=== PATIENT | male | born 1955 | race Caucasian/White ===

== ENCOUNTER 2016-07-20 08:58 | Outpatient (CLI) | payer MEDICAID | END 2016-07-20 08:59 | disposition home or self-care (01) | DX: Z12.2 Encounter for screening for malignant neoplasm of respiratory organs (principal); F17.210 Nicotine dependence, cigarettes, uncomplicated ==

== ENCOUNTER 2016-08-30 13:21 | Outpatient (CLI) | payer MEDICAID ==
--- NOTE | 2016-08-31 09:02 | XRAY Report ---
CERVICAL SPINE WITH FLEXION AND EXTENSION: 08/30/2016 CLINICAL INDICATION: Chronic neck pain. FINDINGS: AP, lateral, oblique, odontoid, lateral flexion, lateral extension views of the cervical s pine were obtained. There is degenerative disc and facet disease present, with disk space narrowing worst at C6-7. There is minimal degenerative anterolisthesis of C4 on C5, which is stable across fle xion and extension. There is no evidence of fracture. Right osseous neural foraminal narrowing is n oted at C4-5 and C5-6. IMPRESSION: DEGENERATIVE CHANGES, WITH RIGHT-SIDED OSSEOUS NEURAL FORAMINAL NARROWING. NO ABNORMAL MOTION ON FLEXION OR EXTENSION. JOB #: [id number] EXT JOB #:[id number]
== END 2016-08-30 13:22 | disposition home or self-care (01) ==
LOC: DI.S 13:21
PROVIDERS: ATTEND Nurse Practitioner Family
DX: M50.31 Other cervical disc degeneration, high cervical region (principal); M47.892 Other spondylosis, cervical region
CPT/HCPCS: 72052

== ENCOUNTER 2017-03-23 04:11 | Emergency (ER) | payer MEDICAID, MEDICARE ==
[2017-03-23] MEDS ORDERED: KETOROLAC 60 MG/2 ML VIAL IM STA (04:22)
[2017-03-23] MEDS: diazePAM 5 MG TABLET PO STA ×2 (04:30→05:59)
[2017-03-23 04:51] LABS: BASOPHILS # (AUTO) 0.1 10^3/uL (0.0-0.1); BASOPHILS % (AUTO) 0.3 %; HGB - HEMOGLOBIN 14.2 g/dL (14.0-18.0); LYMPHOCYTES # (AUTO) 0.8 10^3/uL (1.5-3.5); LYMPHOCYTES % (AUTO) 4.6 %; MEAN CORPUSCULAR HEMOGLOBIN 32.1 pg (27.0-31.0); MEAN CORPUSCULAR HGB CONC 33.6 g/dL (32.0-36.0); MEAN CORPUSCULAR VOLUME 95.5 fL (80.0-94.0); MEAN PLATELET VOLUME 6.8 fL (7.4-11.4); MONOCYTES # (AUTO) 0.9 10^3/uL (0.0-1.0); MONOCYTES % (AUTO) 5.6 %; NEUTROPHILS # (AUTO) 14.8 10^3/uL (1.5-6.6); NEUTROPHILS % (AUTO) 89.5 %; PLT - PLATELET COUNT 233 10^3/uL (130-450); RED BLOOD COUNT 4.42 10^6/uL (4.70-6.10); RED CELL DISTRIBUTION WIDTH 12.7 % (12.0-15.0); WHITE BLOOD COUNT 16.6 x10^3/uL (4.8-10.8)
--- NOTE | 2017-03-23 04:55 | ED Physician Documentation ---
PD HPI HEENT - Stated complaint Stated Complaint: FACIAL PX - Chief complaint Chief Complaint: Heent - History obtained from History obtained from: Patient - History of Present Illness Timing - onset: Yesterday Timing - details: Gradual onset, Still present Location: Mouth Worsens: Swalllowing, Position Associated symptoms: Facial swelling. No: Fever, Congestion Similar symptoms before: No diagnosis Recently seen: Not recently seen - Additional information Additional information: Patient is a 62 year old male with a history of tmj disease who is presenting to the emergency department for facial pains and swelling. patient states that he has had pain in both his tmjs, but normally worse on the right. Patient states that he started to have pain yesterday but it has become much more sever over the last 24 hours. patient has swelling over the area, but has never had swelling with his symptoms before. Review of Systems Constitutional: denies: Fever, Chills Eyes: denies: Decreased vision, Photophobia Ears: reports: Ear pain. denies: Drainage/discharge Throat: reports: Dental pain / toothache Cardiac: denies: Chest pain / pressure, Palpitations Respiratory: denies: Cough, Wheezing GI: denies: Nausea, Vomiting : reports: Reviewed and negative Skin: reports: Reviewed and negative Musculoskeletal: denies: Neck pain Neurologic: denies: Generalized weakness, Focal weakness, Headache, LOC Immunocompromised: denies: Immunocompromised PD PAST MEDICAL HISTORY - Past Medical History Past Medical History: Yes Cardiovascular: Hypertension Respiratory: COPD, Emphysema - Past Surgical History Past Surgical History: Yes - Present Medications Home Medications: Ambulatory Orders Medication Instructions Recorded Confirmed No Known Home Medications [No 03/23/17 03/23/17 Known Home Medications] - Allergies Allergies/Adverse Reactions: Allergies Allergy/AdvReac Type Severity Reaction Status Date / Time No Known Drug Allergies Allergy Verified 05/08/15 15:42 - Social History Does the pt smoke?: Yes Smoking Status: Current every day smoker Does the pt drink ETOH?: Yes ETOH Use: Liquor Does the pt have substance abuse?: No - Immunizations Immunizations are current?: Yes - POLST Patient has POLST: No PD ED PE NORMAL - Vitals Vital signs reviewed: Yes - General General: Alert and oriented X 3 - HEENT HEENT: PERRL, Moist mucous membranes - Neck Neck: No bony TTP - Abdomen Abdomen: Soft, Non tender, Non distended - Derm Derm: Normal color, Warm and dry, No rash - Extremities Extremities: No deformity, Normal ROM s pain, No edema - Neuro Neuro: Alert and oriented X 3, No motor deficit, No sensory deficit, Normal speech PD ED PE EXPANDED - General General: Alert, In Pain - HEENT HEENT: Other (tenderness and swelling over right tmj and right maxillary region , decreased rom secondary to pain) - Cardiac Cardiac: Tachy - Respiratory Respiratory: Wheezing, Right lower lobe, Left lower lobe Results - Vitals Vitals: Vital Signs - 24 hr 03/23/17 03/23/17 03/23/17 04:15 05:16 05:51 Temperature 36.6 C 98.7 C H Heart Rate 136 H 130 H 115 H Respiratory 20 16 16 Rate Blood Pressure 141/92 H 164/92 H 142/84 H O2 Saturation 98 98 96 Oxygen O2 Source Room air - Labs Labs: Laboratory Tests 03/23/17 03/23/17 04:35 04:35 WBC 16.6 H RBC 4.42 L Hgb 14.2 Hct 42.2 MCV 95.5 H MCH 32.1 H MCHC 33.6 RDW 12.7 Plt Count 233 MPV 6.8 L Neut # 14.8 H Lymph # 0.8 L [place] # 0.9 Eos # 0.0 Baso # 0.1 Absolute Nucleated RBC 0.00 Nucleated RBC % 0.0 Sodium 138 Potassium 3.7 Chloride 107 Carbon Dioxide 22 Anion Gap 9.0 BUN 14 Creatinine 0.8 Estimated GFR (MDRD) 98 Glucose 125 H Calcium 9.0 Total Bilirubin 0.9 AST 19 ALT 19 Alkaline Phosphatase 63 Total Protein 7.1 Albumin 4.1 Globulin 3.0 Albumin/Globulin Ratio 1.4 Lipase 13 L - Rads (name of study) ct facial bones with contrast Radiology: Final report received, Discussed with rads, See rad report ( perisosteal abscess, dental infection) PD MEDICAL DECISION MAKING - ED course Complexity details: reviewed old records, reviewed results, re-evaluated patient , considered differential, d/w patient, d/w group segment consultant ED course: Patient was seen and examined at bedside. IV access was gained. patient was treated with toradol and imaging was ordered. When patient returned from imaging the radiologist called and the case was discussed with him. He stated that the patient had a disseminated dental abscess. Patient was treated with unasyn and ent was paged. Case was discussed with Dr. Turcios. Dr. turcios stated that his colleague would be able to evaluate the patient in the emergency department at [facility] and determine if the patient needed inpatient abx, outpatient abx or surgical treatment. Case was discussed with Dr. fuentes in the emergency department who accepted the patient. Arrangements were made and patient was transferred in stable condition. Departure - Departure Disposition: 02 Transfer Acute Care Hosp Clinical Impression: Dental abscess Condition: Stable
[2017-03-23 04:59] LABS: ALBUMIN 4.1 g/dL (3.2-5.5); ALBUMIN/GLOBULIN RATIO 1.4 (1.0-2.2); BILIRUBIN,TOTAL 0.9 mg/dL (0.2-1.0); CREATININE 0.8 mg/dL (0.6-1.2); TOTAL PROTEIN 7.1 g/dL (6.7-8.2)
[2017-03-23] MEDS ORDERED: IOPAMIDOL-300 100 ML VIAL ONE (05:08)
[2017-03-23] MEDS ORDERED: IOPAMIDOL-300 100 ML VIAL IVP ONE (05:19)
--- NOTE | 2017-03-23 05:53 | CT Report ---
EXAM: CT MAXILLOFACIAL WITH CONTRAST EXAM DATE: 03/23/2017 05:21 AM. CLINICAL HISTORY: Right sided facial pain and swelling. COMPARISONS: None. TECHNIQUE: Thin-section axial images were acquired of the face after administration of intravenous co ntrast. Post-processing: Coronal and sagittal reformats. Other: None. IV contrast: 100 cc Isovue-300. In accordance with CT protocol optimization, one or more of the following dose reduction techniques w ere utilized for this exam: automated exposure control, adjustment of mA and/or KV based on patient s ize, or use of iterative reconstructive technique. FINDINGS: There is a small fluid collection seen along the lingual surface of the right mandibular body/angle o f the mandible. This measures 2.4 x 0.5 cm in the axial plane and is consistent with a subperiosteal abscess. This contains a small gas bubble. Finding is immediately adjacent to right mandibular molar tooth which demonstrates a prominent periapical lucency, presumed source of infection. Inflammatory-appearing stranding is seen involving the parapharyngeal fat, pterygoid musculature on t he right side. This extends downward about the right submandibular gland and about the right parotid gland. There is ill-defined swelling of the masseter muscle, surrounding fat, thickening of the platy sma muscle, stranding in the subcutaneous fat. Scattered small areas of gas density are seen within t he it network engineer space. Multiple enlarged right sided level IB lymph nodes are present, presumably reactive nodes. A sizable fluid collection amenable to drainage is not identified. There is moderate mucosal thickening within the right maxillary antrum. Partial opacification of mult iple ethmoid air cells bilaterally. Other paranasal sinuses and mastoids appear unremarkable. Orbits and intracranial contents appear unremarkable. IMPRESSION: 1. Small Subperiosteal abscess along the lingual surface of the mandible, infection likely arising fr om the posteriormost right mandibular tooth. Abscess contains a small amount of gas. 2. Ill-defined inflammatory-appearing stranding with gas bubbles present within the right it network engineer space consistent with infection from gas-forming organism. 3. Cellulitis extends about the right submandibular gland, parotid gland, through the platysma muscle into the subcutaneous fat. 4. Reactive level IB lymphadenopathy. RADIA The above findings were discussed with Dr. Barnes by Dr. Eduardo Matthews at 05:44 hrs on 03/23/17. Referring Provider Line: [phone] SITE ID: [id number]
[2017-03-23] MEDS ORDERED: MORPHINE 10 MG/ML VIAL IVP STA (05:58)
[2017-03-23] MEDS ORDERED: AMPICILLIN/SULBACTAM 3 GM in SODIUM CHLORIDE 0.9% MINIBAG 100 ML IV STA (06:06)
[2017-03-23 07:04] VITALS: BP 102/59
== END 2017-03-23 10:18 | disposition short-term general hospital (02) ==
LOC: ED 04:11
DX: K04.7 Periapical abscess without sinus (principal); I10 Essential (primary) hypertension; J44.9 Chronic obstructive pulmonary disease, unspecified; F17.200 Nicotine dependence, unspecified, uncomplicated
CPT/HCPCS: 36415; 70487; 80053; 83690; 85025; 96365; 96372; 96375; 99284; 99285; Q9967

== ENCOUNTER 2020-10-25 09:42 | Outpatient (CLI) | payer MEDICAID, MEDICARE ==
[2020-10-25 15:04] LABS: BASOPHILS % (AUTO) 0.6 %; EOSINOPHILS # (AUTO) 0.1 10^3/uL (0.0-0.7); EOSINOPHILS % (AUTO) 1.1 %; HCT - HEMATOCRIT 47.2 % (42.0-52.0); HGB - HEMOGLOBIN 15.7 g/dL (14.0-18.0); LYMPHOCYTES # (AUTO) 2.1 10^3/uL (1.5-3.5); MEAN CORPUSCULAR HGB CONC 33.3 g/dL (32.0-36.0); MEAN CORPUSCULAR VOLUME 102.2 fL (80.0-94.0); MEAN PLATELET VOLUME 8.9 fL (7.4-11.4); MONOCYTES # (AUTO) 0.5 10^3/uL (0.0-1.0); NEUTROPHILS # (AUTO) 4.4 10^3/uL (1.5-6.6); NEUTROPHILS % (AUTO) 61.7 %; PLT - PLATELET COUNT 302 10^3/uL (130-450); RED BLOOD COUNT 4.62 10^6/uL (4.70-6.10); RED CELL DISTRIBUTION WIDTH 11.5 % (12.0-15.0); WHITE BLOOD COUNT 7.1 x10^3/uL (4.8-10.8)
[2020-10-25 15:15] LABS: ALBUMIN 4.4 g/dL (3.2-5.5); ALBUMIN/GLOBULIN RATIO 1.4 (1.0-2.2); ALKALINE PHOSPHATASE 69 IU/L (42-121); ALT ALANINE AMINOTRANSFERASE 25 IU/L (10-60); AST ASPARTATE AMINOTRANSFERASE 22 IU/L (10-42); BILIRUBIN,TOTAL 0.6 mg/dL (0.2-1.0); BUN - BLOOD UREA NITROGEN 20 mg/dL (6-20); CALCIUM 10.3 mg/dL (8.5-10.3); CARBON DIOXIDE - CO2 29 mmol/L (21-32); CHLORIDE 101 mmol/L (101-111); CHOL/HDL RATIO 4.7 (<5.0); CHOLESTEROL 312 mg/dL; CREATININE 1.1 mg/dL (0.6-1.2); GFR - MDRD 67 (>89); GLUCOSE 99 mg/dL (70-100); HDL CHOLESTEROL 66 mg/dL; LDL CHOLESTEROL,CALCULATED 219 mg/dL; LDL/HDL RATIO 3.3 (<3.6); POTASSIUM 4.1 mmol/L (3.5-5.0); SODIUM 140 mmol/L (135-145); TOTAL PROTEIN 7.5 g/dL (6.7-8.2); TRIGLYCERIDES 134 mg/dL; VLDL CHOLESTEROL 27 mg/dL
== END 2020-10-25 09:43 | disposition home or self-care (01) ==
LOC: LAB.S 09:42
PROVIDERS: ATTEND Internal Medicine
DX: I10 Essential (primary) hypertension (principal); E78.5 Hyperlipidemia, unspecified; Z12.5 Encounter for screening for malignant neoplasm of prostate
CPT/HCPCS: 36415; 80053; 80061; 85025; G0103; 83721; 84153

== ENCOUNTER 2022-10-20 09:11 | Emergency (ER) | payer MEDICARE ==
--- NOTE | 2022-10-20 09:44 | ED Physician Documentation ---
PD HPI ABD PAIN - Stated complaint Stated Complaint: LOWER BACK PX - Chief complaint Chief Complaint: General - History obtained from History obtained from: Patient - History of Present Illness Timing - onset: How many weeks ago (1-2) Timing - duration: Weeks (1-2) Timing - details: Gradual onset (No apparent acute injury. He noted pain in the left flank to lower back in the last 1 to 2 weeks as gradually increased. Its worse with movement bending and palpation. No abdominal pain per se. No skin rash or sores.), Still present Quality: Aching, Pain Location: Other (left flank mainly) Radiation: Left flank Improved by: Laying still Worsened by: Moving, Position, Palpation (some tender on the muscle left paralumbar/lowe thoracic.) Associated symptoms: No: Fever, Nausea, Vomiting, Diarrhea, Constipation, Dysuria, Hematuria, Weight loss Recently seen: Clinic (Seen at the walk-in clinic with consideration of possible kidney stone given the location. The character is less like a kidney stone but he was referred to the ER for further testing.) Review of Systems Constitutional: denies: Fever, Chills Throat: denies: Sore throat Respiratory: denies: Cough GI: denies: Abdominal Pain, Nausea, Vomiting, Diarrhea : denies: Dysuria, Frequency, Incontinent Skin: denies: Rash, Lesions Musculoskeletal: reports: Back pain. denies: Neck pain Neurologic: denies: Focal weakness, Numbness PD PAST MEDICAL HISTORY - Past Medical History Cardiovascular: Hypertension Respiratory: COPD, Emphysema - Past Surgical History Past Surgical History: Yes - Present Medications Home Medications: Ambulatory Orders Medication Instructions Recorded Confirmed Albuterol 2.5 mg INH PRN PRN 10/20/22 10/20/22 Albuterol Sulf [Ventolin Hfa 18 gm INH PRN PRN 10/20/22 10/20/22 Inhaler] HYDROcod/ACETAM 5/325 [[place] 5/325] 1 ea PO Q6H PRN #18 tablet 10/20/22 Meloxicam [Mobic] 7.5 mg PO BID 10 Days #20 tablet 10/20/22 methocarbamoL [Robaxin] 500 mg PO Q6H PRN #30 tablet 10/20/22 - Allergies Allergies/Adverse Reactions: Allergies Allergy/AdvReac Type Severity Reaction Status Date / Time No Known Drug Allergies Allergy Verified 05/08/15 15:42 - Social History Does the pt smoke?: Yes Smoking Status: Current every day smoker Does the pt drink ETOH?: Yes Does the pt have substance abuse?: No - Immunizations Immunizations are current?: Yes - POLST Patient has POLST: No PD ED PE NORMAL - Vitals Vital signs reviewed: Yes - General General: Alert and oriented X 3, Well developed/nourished - Cardiac Cardiac: RRR, No murmur - Respiratory Respiratory: Clear bilaterally - Abdomen Abdomen: Normal bowel sounds, Soft, Non tender, Non distended - Back Back: No spinal TTP (but is tender in TL area left longitudinal muscles. ) - Derm Derm: Normal color, Warm and dry - Neuro Neuro: Alert and oriented X 3, No motor deficit, No sensory deficit Results - Vitals Vitals: Vital Signs - 24 hr 10/20/22 10/20/22 09:25 14:12 Temperature 36.9 C 36.4 C L Heart Rate 102 H 72 Respiratory 20 16 Rate Blood Pressure 186/96 H 161/92 H O2 Saturation 98 99 Oxygen O2 Source Room air - Labs Labs: Laboratory Tests 10/20/22 10/20/22 10/20/22 10:21 10:21 11:32 WBC 4.9 RBC 4.64 L Hgb 15.3 Hct 46.1 MCV 99.4 H MCH 33.0 H MCHC 33.2 RDW 12.4 Plt Count 220 MPV 8.5 Neut # (Auto) 3.0 Lymph # (Auto) 1.4 L [place] # (Auto) 0.4 Eos # (Auto) 0.1 Baso # (Auto) 0.1 Absolute Nucleated RBC 0.00 Nucleated RBC % 0.0 Sodium 136 Potassium 4.0 Chloride 104 Carbon Dioxide 26 Anion Gap 6.0 BUN 16 Creatinine 0.9 Estimated GFR (MDRD) 84 L Glucose 106 H Calcium 9.3 Total Bilirubin 0.6 AST 20 ALT 14 Alkaline Phosphatase 67 Total Protein 6.9 Albumin 4.2 Globulin 2.7 Albumin/Globulin Ratio 1.6 Lipase 10 L Urine Color YELLOW Urine Clarity CLEAR Urine pH 6.0 Ur Specific [place] 1.025 Urine Protein NEGATIVE Urine Glucose (UA) NEGATIVE Urine Ketones 15 H Urine Occult Blood TRACE-INTA Urine Nitrite NEGATIVE Urine Bilirubin NEGATIVE Urine Urobilinogen 0.2 (NORMAL) Ur Leukocyte Esterase NEGATIVE Ur Microscopic Review NOT INDICATED Urine Culture Comments NOT INDICATED - Rads (name of study) abd/pelvic CT Relevant Findings:: Prelim report reviewed (mild bladder wall thickening, correlate clinically. No ureteral stones (small 1 mm one in kidney).No other acute process. ), EMP independent interpretation of test PD Medical Decision Making - ED course Complexity details: reviewed results (CT abd/pelivs without acute finding to explain pain. The character of his pain seems likely musculospkeletal, with increase on movement, palpation.), considered differential, d/w patient ED course: The character of the patient's pain is seeming more muscular/musculoskeletal. It is in the location of the kidney and consideration could be for kidney stone or infection or other internal processes. The patient was referred from the walk-in clinic for potential testing/imaging. Shared discussion with the patient to treat as musculoskeletal versus further testing resulted in a decision for labs, urine and CT scan. The patient's white count is normal. Kidney function and electrolytes are normal as well. The urine test does not show any signs of infection and no notable blood. CT scan was performed with IV contrast. No obvious stones or masses were noted. No swelling of the kidney. Presume muscular pain at this time and can treat it with anti-inflammatories, muscle relaxant, heat, massage, chiropractic or other modalities. Pain medicine intermittently if needed. Following up with her primary care. Departure - Departure Disposition: 01 Home, Self Care Clinical Impression: Thoracolumbar back pain Condition: Stable Record reviewed to determine appropriate education?: Yes Instructions: ED Low Back Pain Injury, ED Flank Pain Uncertain Cause Follow-Up: MEHNAZ WELCH MD [Primary Care Provider] - [facility] [Provider Group] Prescriptions: Meloxicam [Mobic] 7.5 mg PO BID 10 Days #20 tablet HYDROcod/ACETAM 5/325 [[place] 5/325] 1 ea PO Q6H PRN #18 tablet PRN Reason: Pain methocarbamoL [Robaxin] 500 mg PO Q6H PRN #30 tablet PRN Reason: Spasms Comments: Your CT scan does not show any signs of kidney stones nor other internal process to account for the pain. Your urine test and blood tests are good without any signs of infection. Presume your pain is related to muscular back pain or nerve root irritation. We can treat it with anti-inflammatories and muscle relaxant. To that add Tylenol every 4-6 hours if needed for pain or hydrocodone/acetaminophen if needed for worse pain. Local treatment such as heat and stretching physical therapy or chiropractic are okay as well. I sent prescriptions to the [facility] pharmacy in [place]. Follow-up with your primary care in about a week, call for an appointment. At that point they can decide if any further treatment is needed if its not all the way better and also add in physical therapy etc. if needed. I am prescribing a short course of narcotic pain medication for you. These are potentially dangerous and addictive medications that should be used carefully. These medications may constipate you. Take an [id number] stool softener such as docusate twice daily with plenty of water while taking these medications. If you go 24 hours without a bowel movement, take [id number] MiraLAX, per package instructions. Do not drink or drive while taking these medications. If you received narcotic or sedating medications while in the emergency department do not drive for 24 hours. Store this medication in a safe, secure place and out of reach of children. It is a violation of federal law to give or sell this medication to another person or to use in a manner other than prescribed. The ED will not refill narcotic prescriptions, including prescriptions lost or stolen. You can dispose of unwanted medications at the [facility]'s office or at several pharmacies such as [facility]. Forms: PCP List Discharge Date/Time: 10/20/22 14:17
[2022-10-20] MEDS ORDERED: ACETAMINOPHEN 325 MG TABLET PO STA (10:18)
[2022-10-20] MEDS ORDERED: KETOROLAC 15 MG/ML VIAL IVP STA (10:18)
[2022-10-20 10:35] LABS: BASOPHILS # (AUTO) 0.1 10^3/uL (0.0-0.1); EOSINOPHILS # (AUTO) 0.1 10^3/uL (0.0-0.7); EOSINOPHILS % (AUTO) 2.6 %; HCT - HEMATOCRIT 46.1 % (42.0-52.0); HGB - HEMOGLOBIN 15.3 g/dL (14.0-18.0); LYMPHOCYTES # (AUTO) 1.4 10^3/uL (1.5-3.5); LYMPHOCYTES % (AUTO) 27.5 %; MEAN CORPUSCULAR HGB CONC 33.2 g/dL (32.0-36.0); MEAN CORPUSCULAR VOLUME 99.4 fL (80.0-94.0); MEAN PLATELET VOLUME 8.5 fL (7.4-11.4); MONOCYTES # (AUTO) 0.4 10^3/uL (0.0-1.0); MONOCYTES % (AUTO) 8.9 %; NEUTROPHILS % (AUTO) 59.8 %; PLT - PLATELET COUNT 220 10^3/uL (130-450); RED BLOOD COUNT 4.64 10^6/uL (4.70-6.10); RED CELL DISTRIBUTION WIDTH 12.4 % (12.0-15.0); WHITE BLOOD COUNT 4.9 x10^3/uL (4.8-10.8)
[2022-10-20 10:57] LABS: ALBUMIN 4.2 g/dL (3.2-5.5); ALBUMIN/GLOBULIN RATIO 1.6 (1.0-2.2); BILIRUBIN,TOTAL 0.6 mg/dL (0.2-1.0); CALCIUM 9.3 mg/dL (8.5-10.3); CREATININE 0.9 mg/dL (0.6-1.3); TOTAL PROTEIN 6.9 g/dL (6.4-8.9)
[2022-10-20 11:44] LABS: BILIRUBIN,URINE NEGATIVE (NEGATIVE); CLARITY,URINE CLEAR (CLEAR); GLUCOSE, URINE (UA) NEGATIVE (NEGATIVE); KETONES,URINE (UA) 15 mg/dL (NEGATIVE); LEUKOCYTE ESTERASE, URINE NEGATIVE (NEGATIVE); NITRITE,URINE NEGATIVE (NEGATIVE); OCCULT BLOOD,URINE TRACE-INTA (NEGATIVE); PROTEIN,URINE NEGATIVE (NEGATIVE); UROBILINOGEN,URINE 0.2 (NORMAL) E.U./dL (NORMAL)
--- NOTE | 2022-10-20 13:32 | CT Report ---
PROCEDURE: ABDOMEN/PELVIS W INDICATIONS: left flank pain for 1-2 months, worse CONTRAST: 100ml omni 300 TECHNIQUE: After the administration of IV contrast, 5 mm thick sections acquired from the diaphragms to the symp hysis. 5 mm thick coronal and sagittal reformats were acquired. For radiation dose reduction, the f ollowing was used: automated exposure control, adjustment of mA and/or kV according to patient size. COMPARISON: Not available. FINDINGS: Image quality: Excellent. Lung bases and heart: Unremarkable. Small hiatal hernia. Liver: No solid mass. Normal size. Mild hepatic steatosis. Gallbladder and biliary tree: Normal gallbladder. No biliary dilation. Spleen: No splenomegaly. Pancreas: No pancreatic ductal dilation. Adrenals: No adrenal nodule. Kidneys and ureters: Possible 1 mm nonobstructive stone in inferior pole left kidney. No hydronephros is. No renal cystic lesion which requires follow up. No solid mass. Bowel and peritoneum: No bowel distension. No pathologic free fluid. Diverticulosis. No acute diverti culitis. Lymph nodes: No central or retroperitoneal adenopathy. Vessels: No infrarenal aortic aneurysm. [id number] atherosclerosis. PELVIS Reproductive organs: Unremarkable. Bladder: Bladder is semicontracted. There is mild bladder wall thickening and pericystic stranding. Pelvic lymph nodes: No pelvic adenopathy by size criteria. Bones: No aggressive osseous abnormality. Other: No significant ventral or inguinal hernia. IMPRESSION: 1. Mild bladder wall thickening and subtle pericystic stranding suggesting cystitis. Recommend clinic al correlation. 2. No findings to suggest kidney infections. 4. Possible 1 mm nonobstructive stone in left kidney. No hydronephrosis. 3. Diverticulosis without acute diverticulitis. 4. Hepatic steatosis. Reviewed by: Ashish Hawkins MD on 10/20/2022 1:30 PM PDT Approved by: Ashish Hawkins MD on 10/20/2022 1:30 PM PDT Station ID: [id number]
[2022-10-20] MEDS ORDERED: methocarbamoL 500 MG TABLET PO STA (13:55)
[2022-10-20 14:17] VITALS: BP 161/92
[2022-10-20] MEDS ORDERED: iohexoL-300 100 ML VIAL IVP ONE (21:10)
== END 2022-10-20 14:17 | disposition home or self-care (01) ==
LOC: ED 09:11
DX: M54.50 Low back pain, unspecified (principal); F17.200 Nicotine dependence, unspecified, uncomplicated
CPT/HCPCS: 36415; 74177; 80053; 81003; 83690; 85025; 96374; 99284; A9270; Q9967; 81001; 87086